=== PATIENT | female | born 1955 | race Caucasian/White ===

== ENCOUNTER 2017-01-17 19:44 | Emergency (ER) | payer OTHER | END 2017-01-17 21:20 | disposition home or self-care (01) | LOC: D.ER 19:44 | DX: L03.116 Cellulitis of left lower limb (principal); S90.862A Insect bite (nonvenomous), left foot, initial encounter; W57.XXXA Bitten or stung by nonvenomous insect and other nonvenomous arthropods, initial encounter; Y93.89 Activity, other specified; Y92.89 Other specified places as the place of occurrence of the external cause; I10 Essential (primary) hypertension; F41.9 Anxiety disorder, unspecified ==

== ENCOUNTER 2017-01-21 15:04 | Emergency (ER) | payer OTHER | END 2017-01-21 20:42 | disposition home or self-care (01) | LOC: D.ER 15:04 | DX: T14.8 Other injury of unspecified body region (principal); V89.2XXA Person injured in unspecified motor-vehicle accident, traffic, initial encounter; Y93.89 Activity, other specified; Y92.410 Unspecified street and highway as the place of occurrence of the external cause; M25.50 Pain in unspecified joint; M54.2 Cervicalgia; S46.912A Strain of unspecified muscle, fascia and tendon at shoulder and upper arm level, left arm, initial encounter; I10 Essential (primary) hypertension; F41.9 Anxiety disorder, unspecified ==

== ENCOUNTER → 2017-07-04 07:50 | Outpatient (CLI) | payer OTHER | END | disposition home or self-care (01) | LOC: D.RAD 07:50 | DX: R12 Heartburn (principal); R10.13 Epigastric pain ==

== ENCOUNTER 2018-09-29 08:00 | Outpatient (CLI) | payer OTHER | END 2018-09-29 09:00 | disposition home or self-care (01) | LOC: D.MAMMO 08:00 | DX: Z12.31 Encounter for screening mammogram for malignant neoplasm of breast (principal) ==

== ENCOUNTER 2021-01-30 09:30 | Outpatient (CLI) | payer OTHER | END 2021-01-30 23:59 | disposition home or self-care (01) | LOC: D.MAMMO 09:30 | PROVIDERS: ATTEND Family Medicine | DX: Z12.31 Encounter for screening mammogram for malignant neoplasm of breast (principal) ==